=== PATIENT | female | born 1995 | race Caucasian/White ===

== ENCOUNTER → 2017-05-07 | Day surgery (SDC) | payer OTHER ==
--- NOTE | 2017-05-06 09:05 | PDHPUP ---
History & Physical Update H&P update statement: This history and physical update is based on an assessment of the patient which was completed after admission or registration (within 24 hours), but prior to the surgery/procedure. 1. Bilateral~Femoroacetabular impingement (SHAHRIAR) Cam type, with~resultant labral tear~, Left side symptomatic ~2. ~~Bilateral Acetabular Retroversion , Left side symptomatic ~3. Bilateral Piriformis Syndrome ( L >~R ) 4. S/P Left hip arthroscopy 12/2015 HISTORY OF PRESENT ILLNESS: Stefanis a 20 y.o.~very ~active female~who I have had the pleasure to consult on today.~I have enjoyed meeting her. She~lives in [place]. ~Stefanis a college student at . ~She~is single; she~has no children. ~Stefanenjoys skiing, kayaking, hiking and working out. Cheikhs left~hip pain started November~2010, with no~previous complaints~and with no~recalled trauma or injury. ~Stefandoes not have~a known history of hip dysplasia. Presentation today is of~anterior and lateral left hip pain and occasional groin ~pain. It is dull aching when sitting and sharp with walking. ~The hip does not~ wake her~at night and does~click and catch on her. Sitting can be uncomfortable for her. She also gives the history of left hip arthroscopy by at [facility] in and it did not help her. ~Stefandoes~report suffering from lower back pain episodes for the past one year. Stefanhas~participated in physical therapy and has~tried other conservative measures including chiropractic treatments and massage therapy. She~has not~ received sufficient symptomatic improvement. Stefanhas~utilized medication for pain management, including NSAID. Stefan has used medication for 2 years. Stefanhas occasional pain in her right hip and she describes it as soreness. ~ Stefanunderstands that she~has a hip and pelvis problem which should be researched and wishes to get a better understanding of her~hip status, followed by an establishment of a treatment strategy, hoping she~would be able to get back to her~well being active life. History: Past medical history: ~ None which is relevant Relevant familial history: None which is relevant Past surgical history: Left hip arthroscopy in and the outcome was not good. Stefandenies problematic issues with general anesthesia in the past. I have reviewed, verified and agree with the past medical, surgical, family and social history. Current Medications:~has a current medication list which includes the following prescription(s): fluoxetine and ibuprofen. ALLERGIES:~has No Known Allergies. Objective: Physical Examination: Stefanis 5 feet 5~inches tall and weighs~130~Lbs. Stefanis AAO x3; she~is well-nourished, in NAD. Skin is warm and dry. ~Breathing is non-labored. ~CV with RRR by pulse. Abdomen is soft, NTND. Currently, she~walks with a normal~gait. Trendelenburg sign is negative and proprioception~is normal, both~sides. She~presents~with mild~signs of joint laxity.~Beightons Score: 2 She~is fit looking. ~~ Lower spine examination is negative~for sciatic or femoral nerve irritation with negative~SLR &~femoral stretch tests. Range of motion of the spine is normal~for flexion, extension, and rotations, with no~associated pain. Strength, Sensation and pulses are normal - bilaterally Ankles and knees exams are normal~and no~mal-alignment is evident. She~has~right~1 cm short leg length discrepancy. Thigh circumference is asymmetric with minor muscle atrophy on left~side. Hip ROM (degrees): FL ER At 90~hip FL IR At 90~hip FL AB AD EX IR Neutral hip ER Neutral hip R 90 55 2 40 10 15 25 35 L 90 65 2 40 10 10 25 45 Specific hip and pelvis tests: Quadrant RENALDO Roll Add. Longus R +++ ++ (Piriformis type) Negative Negative L +++ ++ (Piriformis type) Negative + Glut. Med ITB Pos. Imp R Negative Good strength Negative Good strength Negative L Negative Good strength Negative Good strength Negative Squeeze test measured weak Bony Symphysis pubis is pain free to touch while concentric activity of the rectus abdominis, does not~produce pain at its insertion. Ilio Psos specific tests are negative for pain during cycling for both hips~and remarkable for no snap. Anterior capsule tenderness on both sides but the left is worse. Greater trochanteric burse is painful on both hips.Left is worse than the right. Piriformis tests: FAIR is positive,worse on the left with local signs of neuritis related to sciatic nerve. SIJs examination is produces pain on left side with normal~RENALDO in relation and local tenderness. Hamstrings tests are negative~functional contraction and negative~tendinopathy bilaterally. On a daily basis, the following percentages reflect Ayaka's overall total pain : Deep hip: 80% GT: 5% Low buttock pain: 15% Imaging: Radiology studies which I~have personally reviewed, analyzed and measured are below: XR: AP of the hip and pelvis: Performed in a good~technique Coccyx to pubic symphysis distance 3 cm. 0 angle [place]~Lines are preserved. No Pathological signs are seen in the Symphysis Pubis. No Pathological signs are seen at the Ischial~tuberosity. ~ Specific measurements show: NSA~ LCE Sourcil~Angle Sharp's angle Lat. Cam Lat. Pincer C.Over~sign Head~Coverage % ATDmm R N 42 0 35 ++ - 12-3 N N L N 33 0 38 ++ - 12-2 N N Pos. wall sign ISS NAD ~~Dysplasia R +++ +++ 3 mm Negative L +++ + 6 mm Negative Sclerosis Sup. Lat. OA Cysts Joint Space-WBZ Joint Space-Medial R Negative + Negative 4 mm 3.5 mm L + + Negative 3 mm 3.3 mm X Table lateral: Anterior cam lesion is seen Alpha Angle: ~ Right 68 dergrees Left 66 degrees She has had both CT and MRI of her pelvis but she did not bring it with her today. Impression and plan:~ Stefanis a 20 y.o.~active female~suffering from Mixed type SHAHRIAR with acetabular retroversion and labraltear, left symptomatic (more than right) causing significant disability to her~and altering~her~sport and life activities. Physical examination, imaging, and her~story correspond with the diagnosis mentioned above. I explained that femoroacetabular impingement (SHAHRIAR) arises due to a bony or soft tissue conflict between the femur (ball) and acetabulum (socket) caused by an abnormality in the shape of the hip joint. Over time, repetitive impingement can result in damage to the labrum and adjacent surface cartilage within the socket, ultimately giving rise to progressive osteoarthritis of the hip. I explained that although a labral tear can be a source of pain, it is rarely the root of the problem and typically occurs secondary to an underlying abnormality in the shape and mechanics of the hip joint.In her case, her evaluation suggestive of retroversion of the acetabulam on both sides which predispose to impingement. I have explained the diagnosis and its significance to Ayaka and we have discussed the various possible treatment options~and their implications~with her. These include proceeding with conservative treatment while continuing to modify her activities to avoid aggravating the hip further, resuming anti pain medications or intra articular injections (when needed) which can give temporary relief and a hip arthroscopy or hip arthroscopy followed by possible reverse ASHLEY (periacetabular osteotomy) aiming to address the above pathology. However,we need more information to decide the further course of management. Scope can take care of the cam type impingement and possibly some pincer type but the amount of retroversion and the way to address that can be determined only via CT. In order to obtain more detailed information regarding the alignment, orientation, and shape of the bony hip and pelvis I will order a CT scan to be performed. The results of the CT scan, including femoral torsion and acetabular version measured values and 3D images, will aid me in deciding on the best treatment strategy and surgical pre-planning. Ayaka told us that she has had recent CT scan and MRI of her hips.She is going to get those imaging to us and if they are adequate then she may not need any further studies.Otherwise she might have to get a CT scan of her pelvis. Ayaka~is happy with this plan. She is going to contact us with the imaging studies and Rebekah is going to help her in the process. I have also supplied her~with handouts, outlining the expected surgical treatment and rehab involved. I wish Ayaka~all the best, ~~ Ghada Toth MD
[~2017-05-07] MED LIST: ACETAMINOPHEN 500 MG TAB ONE; ACETAMINOPHEN 500 MG TAB PO ONE; ALBUTEROL 3 ML DEYVIAL IH PRN; ATROPINE SULFATE 1 MG/ML VIAL ONE; BUPIVACAINE/EPI 0.25% 30 ML SDV ONE; CEFAZOLIN 2 GM/DEXTROSE/100 ML BAG IV ONE; DEXAMETHASONE 4 MG/ML VIAL ONE; EPINEPHrine 30 MG/30 ML MDV ONE; HYDROmorphONE/DILAUDID 1 MG/ML SYR IVP PRN; HYDROmorphONE/DILAUDID 2 MG/ML INJ ONE; KETOROLAC 30 MG/1 ML SDV ONE; LIDOCAINE 1% 2 ML INJ ID PRN; LR 1,000 ML IV ONE; MIDAZOLAM 2 MG/2 ML VIAL IVP ONE; NALOXONE HCL 0.4 MG/ML INJ IVP PRN; ONDANSETRON 4 MG/2 ML VIAL IVP PRN; ONDANSETRON 4 MG/2 ML VIAL ONE; OXYCODONE/APAP 5/325 TAB ONE; OXYCODONE/APAP 5/325 TAB PO PRN; PHENYLEPHRINE HCL 100 MCG/ML SYR ONE; PREGABALIN 150 MG CAP ONE; PREGABALIN 150 MG CAP PO ONE; PROMETHAZINE HCL 25 MG/ML INJ IVP PRN; PROPOFOL 200 MG/20 ML VIAL ONE; PROPOFOL/EMULSION 500 MG/50 ML BOTTLE IV ONE; REMIFENTANIL HCL 1 MG VIAL ONE; ROCURONIUM 100 MG/10 ML VIAL ONE; SCOPOLAMINE HYDROBROMIDE 1.5 MG PATCH TD ONE; SUGAMMADEX SODIUM 200 MG/2 ML VIAL IVP ONE; ceFAZolin 2 GM/DEXTROSE 100 ML IV ONE; fentaNYL 100 MCG/2 ML INJ IVP PRN; fentaNYL 100 MCG/2 ML INJ ONE
--- NOTE | 2017-05-07 12:55 | PDANEPAE ---
ANE History of Present Illness patient presents for bilateral hip scope. ANE Past Medical History - Cardiovascular History Hx Hypertension: No Hx Arrhythmias: No Hx Chest Pain: No Hx Coronary Artery / Peripheral Vascular Disease: No Hx CHF / Valvular Disease: No Hx Palpitations: No - Pulmonary History Hx COPD: No Hx Asthma/Reactive Airway Disease: No Hx Recent Upper Respiratory Infection: No Hx Oxygen in Use at Home: No - Neurologic History Hx Cerebrovascular Accident: No Hx Seizures: No Hx Dementia: No - Endocrine History Hx Diabetes: No - Renal History Hx Renal Disorders: No - Liver History Hx Hepatic Disorders: No - Neurological & Psychiatric Hx Hx Neurological and Psychiatric Disorders: No - Cancer History Hx Cancer: No - Congenital Disorder History Hx Congenital Disorders: Yes - GI History Hx Gastrointestinal Disorders: No - Chronic Pain History Chronic Pain: Yes (TATA HIPS) ANE Review of Systems Review of systems is: negative - Exercise capacity Exercise capacity: >=4 METS METS (RN): 6 METS ANE Patient History - Allergies Allergies/Adverse Reactions: No Known Allergies Allergy (Unverified 05/04/17 11:18) - Home Medications Home medications: home medication list seen and reviewed Home Medications: Control DAILY06 05/04/17 [Last Taken 05/06/17] Vitamin B 12 DAILY 05/04/17 [Last Taken 04/30/17] - NPO status NPO Since - Liquids (Date): 05/06/17 NPO Since - Liquids (Time): 07:00 NPO Since - Solids (Date): 05/06/17 NPO Since - Solids (Time): 20:00 - Anes Hx Anes Hx: no prior problems - Smoking Hx Smoking Status: Never smoked ANE Labs/Vital Signs - Vital Signs Blood Pressure: 101/54 Heart Rate: 50 Respiratory Rate: 16 O2 Sat (%): 98 Height: 166.37 cm Weight: 61.235 kg ANE Physical Exam - Airway Neck exam: FROM Mallampati Score: Class 1 Mouth exam: normal dental/mouth exam - Pulmonary Pulmonary: no respiratory distress - Cardiovascular Cardiovascular: regular rate and rhythym - ASA Status ASA Status: I ANE Anesthesia Plan Anesthesia Plan: general endotracheal anesthesia (RBA discussed, patient agrees to proceed.)
[2017-05-07 19:29] VITALS: TEMP 98.2
[2017-05-07 20:41] VITALS: PULSE 79
[2017-05-07 21:59] VITALS: BP 103/67; RESP 14; O2SAT 97
== END | disposition home or self-care (01) ==
LOC: FSGY 11:09
PROVIDERS: ATTEND Orthopaedic Surgery Sports Medicine
PROC: 0SQB4ZZ Repair Left Hip Joint, Percutaneous Endoscopic Approach (ICD-10-PCS; principal; 2017-05-07 13:00)
DX: M25.852 Other specified joint disorders, left hip (principal); M24.152 Other articular cartilage disorders, left hip
CPT/HCPCS: 29914; 29916; 76001; C1769; C1713; J0461; J0690; J1100; J1170; J1885; J2250; J2370; J2405; J2704; J3010